=== PATIENT | male | born 1965 | race Caucasian/White ===

== ENCOUNTER → 2016-08-19 | Outpatient (CLI) | payer OTHER ==
--- NOTE | 2016-08-19 17:05 | DX ---
Left ankle - 3 views Indication: Pain. Technique: AP, mortise, and lateral views. Comparison: Left ankle series dated November 02, 2014. Findings: No acute fracture or derangement of the well seated hardware. The old distal fibular fractu re and medial malleolar fracture are completely healed, similar to the October 2014 study. Moderate posttraumatic osteoarthritis, evidenced by joint space narrowing, subchondral sclerosis, ost eophytes, and small loose bodies are all unchanged. The subtalar joints are well preserved and normal . IMPRESSION: 1. Moderate to severe posttraumatic osteoarthritis at the ankle is unchanged since October 2014. 2. Hardware from old healed distal fibular and medial malleolus fractures are unchanged with no evide nce of loosening.
--- NOTE | 2016-08-19 18:10 | DX ---
Left foot - 3 views Indication: Pain. Comparison: No prior left foot series. Left ankle series dated November 02, 2014. Findings: The normally mineralized bones are anatomically aligned. No fracture, periosteal reaction, or bone lesion. The joint spaces are preserved. Impression: Negative. No explanation for foot pain.
== END ==
LOC: CIMAGING 15:51
PROVIDERS: ATTEND Family Medicine
DX: M19.172 Post-traumatic osteoarthritis, left ankle and foot (principal); M79.672 Pain in left foot; Z96.9 Presence of functional implant, unspecified
CPT/HCPCS: 73610-PO; 73630-PO